=== PATIENT | male | born 1945 | race Caucasian/White ===

== ENCOUNTER 2021-03-05 18:11 | Emergency (ER) | payer MEDICARE ==
[~2021-03-05] VITALS: Ht 177.8 cm; Wt 104.5 kg
--- NOTE | 2021-03-05 18:14 | PHYS DOC ---
Past History Past Medical History: Cancer, Prostatitis, UTI General Adult HPI: HPI: ". I was at [facility] today to get surgery.. And have skin cancer and they do Mohs surgery... And I have not been able to urinate since.. I have prostate cancer which was treated with radiation... I usually self caths.. but now.. I can't get a cath. in...I got to have... some relief..the pain of the urinary retention is terrible.." Patient is a 75 year old male who presents with above hx and complaints of dysuria and acute urinary retention. Patient was at [facility] for bowel surgery today however after surgery was unable to self cath. Patient complains of acute urinary retention and lower abdomen pain. Patient has history of prostate cancer with treated with radiation. Patient also has history of multiple skin cancers and has undergone multiple surgeries. Patient requesting assistance in passing a catheter into his bladder. Review of Systems: Review of Systems: Constitutional: Denies fever or chills Eyes: Denies change in visual acuity HENT: Denies nasal congestion or sore throat Respiratory: Denies cough or shortness of breath Cardiovascular: Denies chest pain or edema GI: Complains of lower abdominal pain, nausea. Denies vomiting, bloody stools or diarrhea : Complains of acute urinary retention and dysuria Musculoskeletal: Denies back pain or joint pain Integument: Multiple skin cancers-currently treated at [facility] in [place] Neurologic: Denies headache, focal weakness or sensory changes Endocrine: Denies polyuria or polydipsia Lymphatic: Denies swollen glands Psychiatric: Denies depression or anxiety Family History: Family History: Noncontributory to presentation Current Medications: Current Meds: See nursing for home meds Allergies: Allergies: No known drug allergies Physical Exam: PE: Constitutional: In acute distress, non-toxic appearance. [] HENT: Normocephalic, multiple scars and recent surgery to top of head removed skin cancer,, bilateral external ears normal, oropharynx moist, no oral exudates, nose old scars [] Eyes: PERRLA, EOMI, conjunctiva normal, no discharge. [] Neck: Normal range of motion, no tenderness, supple, no stridor. [] Cardiovascular:Heart rate regular rhythm, no murmur [] Lungs & Thorax: Bilateral breath sounds to apex auscultation [] Abdomen: Bowel sounds decreased,, soft, super pubic distention and tenderness, no masses, no pulsatile masses. Normal male anatomy and testicles descended. Rebound to lower pelvic area Skin: Warm, dry, no erythema, no rash. Multiple areas of skin sclerotic scars and current Mohs surgery sites Back: No tenderness, no CVA tenderness. [] Extremities: No tenderness, no cyanosis, no clubbing, ROM intact, no edema. No psoas sign. Arthritic changes. Neurologic: Alert and oriented X 3, normal motor function, normal sensory function, no focal deficits noted. [] Psychologic: Affect anxious, judgement normal, mood normal. [] EKG: EKG: [] Radiology/Procedures: Radiology/Procedures: [] Heart Score: C/O Chest Pain: N/A Risk Factors: Risk Factors: DM, Current or recent (<one month) smoker, HTN, HLP, family history of CAD, obesity. Risk Scores: Score 0 - 3: 2.5% MACE over next 6 weeks - Discharge Home Score 4 - 6: 20.3% MACE over next 6 weeks - Admit for Clinical Observation Score 7 - 10: 72.7% MACE over next 6 weeks - Early Invasive Strategies Course & Med Decision Making: Course & Med Decision Making Pertinent Labs and Imaging studies reviewed. (See chart for details) Attempt by nursing to pass catheter unsuccessful. I also was unable to pass cath, but did have some decompression of bladder. But was unable pass catheter past prostate. Currently no urinary cart available in the emergency department or in hospital- reportedly discontinued. No urology staff available at our hospital or at [facility]. Patient declining transfer to . Pt requesting repeat attempt by me. I then re-attempted passage of catheter x2-eventually was able to pass a 16- gauge Magana with return of urine . All attempts at passage of urinary catheters done with sterile technique and catheter kits. I will treat patient with Cipro 500 twice daily until follow-up with his urologist because of the multiple attempts by staff and my self. Discharged with Magana and reservoir. Patient follow-up pending cultures. Impression: 1. Acute urinary retention 2. History of prostate cancer 3. History of skin cancers currently under treatment at [facility] [] Kenny Disclaimer: Kenny Disclaimer: This electronic medical record was generated, in whole or in part, using a voice recognition dictation system. Departure Departure: Referrals: PCP,UNKNOWN (PCP) Scripts Ciprofloxacin (CIPRO) 500 Mg/5 Ml [email or web address] 500 MG PO BID for dysuria for 5 Days, MISC Prov: JOSUE DE LEON MD 03/05/21 Dragzain Disclaimer This chart was dictated in whole or in part using Voice Recognition software in a busy, high-work load, and often noisy Emergency Department environment. It may contain unintended and wholly unrecognized errors or omissions. Dragon Disclaimer This chart was dictated in whole or in part using Voice Recognition software in a busy, high-work load, and often noisy Emergency Department environment. It may contain unintended and wholly unrecognized errors or omissions. Dragon Disclaimer This chart was dictated in whole or in part using Voice Recognition software in a busy, high-work load, and often noisy Emergency Department environment. It may contain unintended and wholly unrecognized errors or omissions. JOSUE DE LEON MD Mar 05, 2021 18:14
[2021-03-05] MEDS ORDERED: CIPR500S2 PO (20:36)
[2021-03-05] MEDS ORDERED: CIPROFLOXACIN HCL 500 MG TABLET ONE (20:41)
[2021-03-05 20:45] VITALS: BP 156/91
[2021-03-05] MEDS ORDERED: CIPROFLOXACIN HCL 500 MG TABLET PO ONE (20:45)
[2021-03-05 20:46] LABS: BACTERIA,URINE 0 /HPF (0-FEW); BILIRUBIN,URINE NEG (NEG); CLARITY,URINE CLEAR; COLOR,URINE YELLOW; GLUCOSE,URINE >=1000 mg/dL (NEG); NITRITE,URINE NEG (NEG); RBC,URINE TNTC /HPF (0-2); UROBILINOGEN,URINE 0.2 mg/dL (0.2 mg/dL)
[2021-03-05 20:47] LABS: YEAST,URINE PRESENT /HPF
== END 2021-03-05 20:45 | disposition home or self-care (01) ==
LOC: ER 18:11
DX: R33.8 Other retention of urine (principal); Z85.46 Personal history of malignant neoplasm of prostate; Z85.828 Personal history of other malignant neoplasm of skin; Z87.440 Personal history of urinary (tract) infections
CPT/HCPCS: 51702; 81001; 87086; 87106; 99284-25